=== PATIENT | male | born 1945 | race Caucasian/White ===

== ENCOUNTER 2016-09-10 18:14 | Emergency (ER) | payer MEDICARE ==
[2016-09-10 19:06] VITALS: BP 159/88
[2016-09-10] MEDS ORDERED: Bacitracin Oint 1 GM U/D Packet TOP ONE (20:22)
[2016-09-10] MEDS ORDERED: Diphtheria,Pertussis(Acell),Tetanus Vaccine 0.5 ML SDV IM ONE (20:22)
--- NOTE | 2016-09-10 23:01 | EDM.PDOC ---
ED HPI GENERAL MEDICAL PROBLEM - General Chief Complaint: Laceration Stated Complaint: HIT ON HEAD WITH FORK LIFT Time Seen by Provider: 09/10/16 20:06 Source of Information: Reports: Patient History Limitations: Reports: No Limitations - History of Present Illness INITIAL COMMENTS - FREE TEXT/NARRATIVE: Head injury; this is a 71 year old male present to ER via POV, he reports was doing work on his [employer], when he came in contact with a boom of a fork lift. He fell on his head. The "hit" on the top of his head, caused him to briefly see "stars", felt like his back "buckled" from the weight of the boom and his right knee gave out. -reports laceration to the top of his head. -denies any nausea, vomiting. -denies any numbness or tingling of arms or legs. -denies any changes in gait or balance. Onset: Sudden Onset Date: 09/10/16 Duration: Hour(s): Location: Reports: Head, Back Quality: Reports: Ache, Burning Severity: Moderate Improves with: Reports: Rest Worsens with: Reports: Movement Associated Symptoms: Reports: Other (laceration the scalp) Middle Back Pain Score (Numeric/FACES): 5 Past Medical History - Past Health History Medical/Surgical History: Denies Medical/Surgical History - Infectious Disease History Infectious Disease History: Reports: Chicken Pox, Measles Social & Family History - Tobacco Use Smoking Status *Q: Never Smoker - Caffeine Use Caffeine Use: Reports: Coffee - Recreational Drug Use Recreational Drug Use: No - Living Situation & Occupation Living situation: Reports: Other ([place] [employer] [place] ED ROS GENERAL - Review of Systems Review Of Systems: See Below Constitutional: Reports: Other HEENT: Reports: Other (laceration to scalp) Respiratory: Reports: No Symptoms Cardiovascular: Reports: No Symptoms Endocrine: Reports: No Symptoms GI/Abdominal: Reports: No Symptoms : Reports: No Symptoms Musculoskeletal: Reports: Back Pain (upper to mid back pain. ), Muscle Pain ( back), Muscle Stiffness (back) Skin: Reports: Wound Neurological: Reports: No Symptoms Psychiatric: Reports: No Symptoms Hematologic/Lymphatic: Reports: No Symptoms Immunologic: Reports: No Symptoms ED EXAM, SKIN/RASH Exam: See Below Exam Limited By: No Limitations General Appearance: Alert, WD/WN, No Apparent Distress Eye Exam: Bilateral Eye: EOMI, Normal Inspection, PERRL Ears: Normal External Exam, Normal Canal, Hearing Grossly Normal, Normal TMs Nose: Normal Inspection, Normal Mucosa, No Blood Throat/Mouth: Normal Inspection, Normal Lips, Normal Teeth, Normal Gums, Normal Oropharynx, Normal Voice, No Airway Compromise Head: Atraumatic, Normocephalic Neck: Normal Inspection, Supple, Non-Tender, Full Range of Motion Respiratory/Chest: No Respiratory Distress, Lungs Clear, Normal Breath Sounds, No Accessory Muscle Use, Chest Non-Tender Cardiovascular: Normal Peripheral Pulses Peripheral Pulses: 2+: Radial (L), Radial (R) GI/Abdominal: Normal Bowel Sounds, Soft, Non-Tender, No Organomegaly, No Distention, No Abnormal Bruit, No Mass (Male) Exam: Deferred Rectal (Males) Exam: Deferred Back Exam: Decreased Range of Motion, Muscle Spasm, Vertebral Tenderness Extremities: Normal Inspection, Normal Range of Motion, Non-Tender, No Pedal Edema, Normal Capillary Refill Neurological: Alert, Oriented, CN II-XII Intact, Normal Cognition, Normal Gait, No Motor/Sensory Deficits Psychiatric: Normal Affect, Normal Mood Skin: Warm, Dry, Wound/Incision Location, Skin: Head Characteristics: Linear Associated features: Tenderness Lymphatic: No Adenopathy ED SKIN PROCEDURES - Laceration/Wound Repair Middle Posterior [place] Head Appearance: Subcutaneous, Irregular, Clean Distal NVT: Neuro & Vascular Intact, No Tendon Injury Anesthetic Type: Local Local Anesthesia - Lidocaine (Xylocaine): 1% Plain Local Anesthetic Volume: 4cc Skin Prep: Chlorhexidine (Hibiciens), Saline Exploration/Debridement/Repair: Minimal Debridement Closed with: Sutures Suture Size: 3-0 # of Sutures: 8 Suture Type: Prolene, Running Sterile Dressing Applied: Nurse Tetanus Status Addressed: Yes Complications: No Course - Vital Signs Last Recorded V/S: Last Vital Signs Temp 36.4 C 09/10/16 19:05 Pulse 75 09/10/16 19:05 Resp 16 09/10/16 19:05 BP 159/88 H 09/10/16 19:05 Pulse Ox 97 09/10/16 19:05 - Orders/Labs/Meds Orders: Active Orders 24 hr Category Date Time Status Vaccines to be Administered [RC] PER UNIT ROUTINE Care 09/10/16 20:23 Active Cervical Spine wo Cont [CT] Stat Exams 09/10/16 20:28 Taken Head wo Cont [CT] Stat Exams 09/10/16 20:26 Taken Thoracic Spine 2V [CR] Stat Exams 09/10/16 20:28 Taken Thoracic Spine wo Cont [CT] Stat Exams 09/10/16 21:17 Taken Meds: Medications Discontinued Medications Generic Name Dose Route Start Last Admin Trade Name Dean PRN Reason Stop Dose Admin Bacitracin 1 dose 09/10/16 20:22 09/10/16 21:30 Bacitracin Oint 1 Gm TOP 09/10/16 20:23 1 dose ONETIME ONE Administration Diphtheria/Tetanus/Acell Pertussis 0.5 ml 09/10/16 20:22 09/10/16 21:30 Adacel IM 09/10/16 20:23 0.5 ml .ONCE ONE Administration Lidocaine HCl 5 ml 09/10/16 20:21 09/10/16 21:15 Xylocaine-Mpf 1% INJECT 09/10/16 20:22 5 ml ONETIME ONE Administration - Radiology Interpretation Free Text/Narrative:: Ct scan of head, neck and T-spine; non displaced fracture of T1,T2,T3 were noted consulted with Orthopedic surgeon. reports this is a stable fx. no further treatment is needed from Orthopedics, will treat for muscle spasms and pain control, follow up with Primary Care Provider. Departure - Departure Time of Disposition: 23:14 Disposition: Home, Self-Care 01 Condition: Good Clinical Impression: Thoracic spine fracture Qualifiers: Encounter type: initial encounter Thoracic vertebra fracture level: T3 Fracture type: closed Fracture morphology: other fracture Qualified Code(s): S22.038A - Other fracture of third thoracic vertebra, initial encounter for closed fracture Scalp laceration Qualifiers: Encounter type: initial encounter Qualified Code(s): S01.01XA - Laceration without foreign body of scalp, initial encounter Head injury, closed, without LOC Qualifiers: Encounter type: initial encounter Qualified Code(s): S09.90XA - Unspecified injury of head, initial encounter - Discharge Information Instructions: Head Injury, Adult, Laceration Care, Adult, Vertebral Fracture, [id number] Referrals: PCP,None [Primary Care Provider] - Forms: ED Department Discharge Care Plan Goals: closed head injury -head CT negative -head injury sheet given Return to ER for any changes or concerns Scalp Laceration -running sutures placed -suture removal in 10 days -monitor for signs of infection; increased pain, redness, drainage, fever Return to ER, Urgent Care or Primary Care for care Nondisplaced fractures of spinous process of T1, T2, T3 -take medication for pain and muscle spasm -Hydrocodone 5-325mg take 1 to 2 tablets every 4 hours as needed for pain #20 -Flexeril 10 mg; take one every 8 hours as needed for muscle spasm -Motrin 600mg take one every 8 hours for pain Advise no bending, lifting or twisting til recheck with Primary Care Provider Advise to follow up with Primary Care Provider in next 3 to 5 days Return to ER if has uncontrolled pain, fever, chills, nausea, vomiting, rash or not improved Mr. Kelly given disc of CT Scan of head, neck and T-spine, given Radiology report, reviewed results with pt. t - Problem List & Annotations (1) Head injury, closed, without LOC SNOMED Code(s): 22116156 Code(s): S09.90XA - UNSPECIFIED INJURY OF HEAD, INITIAL ENCOUNTER Status: Acute Priority: High Qualifiers: Encounter type: initial encounter Qualified Code(s): S09.90XA - Unspecified injury of head, initial encounter (2) Scalp laceration SNOMED Code(s): 451957728 Code(s): S01.01XA - LACERATION WITHOUT FOREIGN BODY OF SCALP, INITIAL ENCOUNTER Status: Acute Priority: High Qualifiers: Encounter type: initial encounter Qualified Code(s): S01.01XA - Laceration without foreign body of scalp, initial encounter (3) Thoracic spine fracture SNOMED Code(s): 324809778 Code(s): S22.009A - UNSP FRACTURE OF UNSP THORACIC VERTEBRA, INIT FOR CLOS FX Status: Acute Priority: High Qualifiers: Encounter type: initial encounter Thoracic vertebra fracture level: T3 Fracture type: closed Fracture morphology: other fracture Qualified Code(s) : S22.038A - Other fracture of third thoracic vertebra, initial encounter for closed fracture - Problem List Review Problem List Initiated/Reviewed/Updated: Yes - My Orders Last 24 Hours: My Active Orders 09/10/16 20:23 Vaccines to be Administered [RC] PER UNIT ROUTINE 09/10/16 20:26 Head wo Cont [CT] Stat 09/10/16 20:28 Cervical Spine wo Cont [CT] Stat Thoracic Spine 2V [CR] Stat 09/10/16 21:17 Thoracic Spine wo Cont [CT] Stat - Assessment/Plan Last 24 Hours: My Active Orders 09/10/16 20:23 Vaccines to be Administered [RC] PER UNIT ROUTINE 09/10/16 20:26 Head wo Cont [CT] Stat 09/10/16 20:28 Cervical Spine wo Cont [CT] Stat Thoracic Spine 2V [CR] Stat 09/10/16 21:17 Thoracic Spine wo Cont [CT] Stat Plan: closed head injury -head CT negative -head injury sheet given Return to ER for any changes or concerns Scalp Laceration -running sutures placed -suture removal in 10 days -monitor for signs of infection; increased pain, redness, drainage, fever Return to ER, Urgent Care or Primary Care for care Nondisplaced fractures of spinous process of T1, T2, T3 -take medication for pain and muscle spasm -Hydrocodone 5-325mg take 1 to 2 tablets every 4 hours as needed for pain #20 -Flexeril 10 mg; take one every 8 hours as needed for muscle spasm -Motrin 600mg take one every 8 hours for pain Advise no bending, lifting or twisting til recheck with Primary Care Provider Advise to follow up with Primary Care Provider in next 3 to 5 days Return to ER if has uncontrolled pain, fever, chills, nausea, vomiting, rash or not improved Mr. Kelly given disc of CT Scan of head, neck and T-spine, given Radiology report, reviewed results with pt.
--- NOTE | 2016-09-11 11:43 | CR ---
Wedging of a few mid thoracic vertebral segments with disc height loss. Refer to CT report.
== END 2016-09-10 23:14 | disposition home or self-care (01) ==
LOC: JP.ED 18:14
DX: S22.031A Stable burst fracture of third thoracic vertebra, initial encounter for closed fracture (principal); S22.011A Stable burst fracture of first thoracic vertebra, initial encounter for closed fracture; S22.021A Stable burst fracture of second thoracic vertebra, initial encounter for closed fracture; S01.01XA Laceration without foreign body of scalp, initial encounter; Z23 Encounter for immunization; W01.198A Fall on same level from slipping, tripping and stumbling with subsequent striking against other object, initial encounter
CPT/HCPCS: 12002; 70450; 72070; 72070-26; 72125; 72128; 90471; 90715; 99284-25; A4217

== ENCOUNTER 2016-09-19 13:43 | Emergency (ER) | payer MEDICARE ==
[2016-09-19 15:13] VITALS: BP 142/81
--- NOTE | 2016-09-19 15:32 | EDM.PDOC ---
ED HPI GENERAL MEDICAL PROBLEM - General Stated Complaint: REMOVE STITCHES IN HEAD Time Seen by Provider: 09/19/16 15:15 Source of Information: Reports: Patient History Limitations: Reports: No Limitations - History of Present Illness INITIAL COMMENTS - FREE TEXT/NARRATIVE: Nate is a 71 year old male here for a suture removal. He denies any complaints or concerns. - Related Data Allergies Allergy/AdvReac Type Severity Reaction Status Date / Time No Known Allergies Allergy Verified 09/11/16 00:09 Past Medical History - Past Health History Medical/Surgical History: Denies Medical/Surgical History - Infectious Disease History Infectious Disease History: Reports: Chicken Pox, Measles Social & Family History - Tobacco Use Smoking Status *Q: Never Smoker - Caffeine Use Caffeine Use: Reports: Coffee - Recreational Drug Use Recreational Drug Use: No - Living Situation & Occupation Living situation: Reports: Other ([place]ives on a [place] ED ROS GENERAL - Review of Systems Review Of Systems: ROS reveals no pertinent complaints other than HPI. ED EXAM, SKIN/RASH Exam: See Below Exam Limited By: No Limitations General Appearance: Alert, WD/WN, No Apparent Distress Head: Other (Healing scalp laceration) Neck: Normal Inspection, Supple Respiratory/Chest: No Respiratory Distress Cardiovascular: Normal Peripheral Pulses, Regular Rate, Rhythm Extremities: Normal Inspection Neurological: Alert, Oriented, CN II-XII Intact Psychiatric: Normal Affect, Normal Mood Skin: Warm, Dry, Intact, Wound/Incision (healing well) Course - Vital Signs Last Recorded V/S: Last Vital Signs Temp 35.9 C 09/19/16 15:12 Pulse 66 09/19/16 15:12 Resp 16 09/19/16 15:12 BP 142/81 H 09/19/16 15:12 Pulse Ox 95 09/19/16 15:12 Nate is a 71 year old male who presents to the ED today for suture removal. He had a scalp laceration sutured 10 days prior, has been healing well with no complaints. Sutures removed without difficulty, wound care discussed. Patient is requesting a refill for his Flexeril (Thoracic lumbar spinous process fx), he was given an additional 15 tablets and discharged in stable condition. Departure - Departure Time of Disposition: 16:00 Disposition: Home, Self-Care 01 Condition: Good Clinical Impression: Encounter for removal of sutures - Discharge Information Instructions: Suture Removal, Care After Referrals: PCP,None [Primary Care Provider] -
== END 2016-09-19 15:41 | disposition home or self-care (01) ==
LOC: JP.ED 13:43
DX: S01.01XD Laceration without foreign body of scalp, subsequent encounter (principal); X58.XXXD Exposure to other specified factors, subsequent encounter
CPT/HCPCS: 99282